=== PATIENT | female | born 1990 | race Caucasian/White ===

== ENCOUNTER 2024-05-23 19:45 | Emergency (ER) | payer SELFPAY ==
[~2024-05-23] VITALS: Ht 160 cm; Wt 78.0 kg
[2024-05-23 19:59] VITALS: O2SAT 100
[2024-05-23 20:08] VITALS: BP 170/90; PULSE 100; RESP 18; TEMP 36.9; O2SAT 100
== END 2024-05-23 22:38 | disposition left against medical advice (07) ==
LOC: ER 19:45
DX: R30.9 Painful micturition, unspecified (principal); Z53.21 Procedure and treatment not carried out due to patient leaving prior to being seen by health care provider